=== PATIENT | female | born 1960 | race Caucasian/White ===

== ENCOUNTER 2018-04-19 18:43 | Emergency (ER) | payer OTHER ==
[~2018-04-19] VITALS: Ht 154.9 cm; Wt 61.2 kg
[2018-04-19] MEDS ORDERED: SYNTHROID100 MCG (18:49)
[2018-04-19] MEDS ORDERED: METFORMIN HYDRO25 G1 (18:50)
[2018-04-19] MEDS ORDERED: COZAAR25 MG (18:50)
[2018-04-19] MEDS ORDERED: ZOCOR20 MG (18:50)
== END 2018-04-19 22:16 | disposition home or self-care (01) ==
LOC: ER 18:43
DX: R21 Rash and other nonspecific skin eruption (principal)

== ENCOUNTER 2021-02-15 13:04 | Emergency (ER) | payer OTHER ==
[~2021-02-15] VITALS: Ht 154.9 cm; Wt 60.8 kg
[~2021-02-15 13:04] MED LIST: COZAAR25 MG; METFORMIN HYDRO25 G1; SYNTHROID100 MCG; ZOCOR20 MG
== END 2021-02-15 16:59 ==
LOC: ER 13:04
DX: M54.32 Sciatica, left side (principal)